=== PATIENT | female | born 1995 | race Caucasian/White ===

== ENCOUNTER 2016-12-27 11:32 | Emergency (ER) | payer MEDICARE ==
[~2016-12-27] VITALS: Ht 175.3 cm; Wt 78.2 kg
[2016-12-27 12:57] LABS: ADD MIUA? YES; BILIRUBIN NEGATIVE; BLOOD NEGATIVE; COLOR YELLOW ((YELLOW)); GLUCOSE (STRIP) NEGATIVE; KETONES 5; LEUKOCYTES LARGE; NITRITE POSITIVE; PROTEIN (STRIP) NEGATIVE; SPECIFIC GRAVITY 1.026 (1.000-1.030)
[2016-12-27 13:12] LABS: BACTERIA 3+ /HPF; CALCIUM OXALATE CRYSTALS 2+ /HPF; EPITHELIAL CELLS 1+ /HPF; MUCUS TRACE /LPF; UCUL ADDED? YES
[2016-12-27 13:20] LABS: HEMATOCRIT 36.9 % (36.0-46.0); MCH 26.2 PG (29.0-34.0); MCHC 33.3 G/DL (30.0-36.0); MCV 78.5 FL (83-99); MEAN PLAT.VOLUME 11.7 uM^3 (9.5-12.4); PLATELET COUNT 192 K/uL (156-360); RBC DIS.WIDTH-SD 41.9 % (39-53); WHITE BLOOD COUNT 8.9 K/uL (4.1-10.2)
[2016-12-27 13:28] LABS: CHLORIDE 106 mEq/L (99-109); POTASSIUM 3.3 mEq/L (3.7-5.4); SODIUM 138 mEq/L (136-147)
[2016-12-27 13:30] LABS: GLUCOSE 89 mg/dL (70-99)
[2016-12-27 13:31] LABS: ANION GAP 8 MEQ/L (2-14)
[2016-12-27 13:34] LABS: GFR ESTIMATE (CALCULATED) > 59 mL/min/
[2016-12-27 13:35] LABS: UREA NITROGEN (BUN) 9 mg/dL (9-23)
[2016-12-27 13:42] LABS: QUANTITATIVE HCG 8000.4 MIU/ML
[2016-12-27] MEDS ORDERED: MACROBID100 MG PO (13:51)
[2016-12-27 13:59] VITALS: BP 118/74
== END 2016-12-27 14:00 | disposition home or self-care (01) ==
LOC: EME 11:32
PROVIDERS: Nurse Practitioner Family
DX: O23.91 Unspecified genitourinary tract infection in pregnancy, first trimester (principal); Z3A.01 Less than 8 weeks gestation of pregnancy
CPT/HCPCS: 80048; 81003; 84702; 85027; 87077; 87086; 87186; 99281; 99284

== ENCOUNTER 2017-01-12 17:29 | Emergency (ER) | payer MEDICARE ==
[~2017-01-12] VITALS: Ht 175.3 cm; Wt 78.5 kg
[~2017-01-12 17:29] MED LIST: MACROBID100 MG PO
[2017-01-12 17:54] LABS: MCH 25.8 PG (29.0-34.0); MCHC 31.8 G/DL (30.0-36.0); MEAN PLAT.VOLUME 10.4 uM^3 (9.5-12.4); PLATELET COUNT 180 K/uL (156-360); RBC DIS.WIDTH-CV 14.3 % (11.8-14.6); RBC DIS.WIDTH-SD 41.2 % (39-53); RED BLOOD COUNT 4.69 M/uL (3.80-5.20); WHITE BLOOD COUNT 9.6 K/uL (4.1-10.2)
[2017-01-12 20:35] LABS: CHLORIDE 103 mEq/L (99-109); SODIUM 135 mEq/L (136-147)
[2017-01-12 20:37] LABS: GLUCOSE 91 mg/dL (70-99)
[2017-01-12 20:39] LABS: ANION GAP 9 MEQ/L (2-14); TOTAL BILIRUBIN 0.4 mg/dL (0.0-1.0)
[2017-01-12 20:41] LABS: ALKALINE PHOSPHATASE 65 IU/L (3-129); GFR ESTIMATE (CALCULATED) > 59 mL/min/
[2017-01-12 20:42] LABS: UREA NITROGEN (BUN) 11 mg/dL (9-23)
[2017-01-12 20:44] LABS: LIPASE 32 U/L (1.0-51.0)
[2017-01-12] MEDS ORDERED: ZOFRAN ODT4 MG PO (21:05)
[2017-01-12] MEDS ORDERED: MICONAZOLE 745 G1 VG (21:05)
[2017-01-12 21:09] LABS: ADD MIUA? YES; BILIRUBIN NEGATIVE; BLOOD NEGATIVE; COLOR YELLOW ((YELLOW)); GLUCOSE (STRIP) NEGATIVE; KETONES 80; LEUKOCYTES SMALL; NITRITE NEGATIVE; PROTEIN (STRIP) NEGATIVE; SPECIFIC GRAVITY 1.023 (1.000-1.030)
[2017-01-12 21:35] LABS: BACTERIA RARE /HPF; EPITHELIAL CELLS RARE /HPF; MUCUS TRACE /LPF; UCUL ADDED? NO; WHITE BLOOD CELLS 15-20 /HPF (0-5)
[2017-01-12 21:56] VITALS: BP 119/74
== END 2017-01-12 21:57 | disposition home or self-care (01) ==
LOC: EME 17:29 → RME 17:29
DX: O99.511 Diseases of the respiratory system complicating pregnancy, first trimester (principal); J32.9 Chronic sinusitis, unspecified; O23.591 Infection of other part of genital tract in pregnancy, first trimester; N76.0 Acute vaginitis; O21.9 Vomiting of pregnancy, unspecified; O26.891 Other specified pregnancy related conditions, first trimester; R19.7 Diarrhea, unspecified; M54.5 Low back pain; Z3A.01 Less than 8 weeks gestation of pregnancy; Z87.891 Personal history of nicotine dependence
CPT/HCPCS: 76801; 80053; 81003; 83690; 84702; 85027; 87077; 87086; 87186; 99281; 99283